=== PATIENT | male | born 1975 | race Two or more races ===

== ENCOUNTER 2023-09-07 17:21 | Emergency (ER) | payer OTHER ==
[~2023-09-07] VITALS: Ht 175.3 cm; Wt 95.3 kg
[~2023-09-07 17:21] MED LIST: LISINOPRIL20 MG
[2023-09-07] MEDS ORDERED: NORVASC5 MG PO (17:55)
[2023-09-07 18:50] LABS: HEMATOCRIT 42.6 % (39.0-48.0); HEMOGLOBIN 14.9 g/dL (13-16.00); MEAN CELL VOLUME 85.5 fL (80.0-100.00); MEAN CORPUSCULAR HEMOGLOBIN 29.9 pg (27.00-32.0); PLATELET COUNT 274 K/uL (150-450); RED BLOOD COUNT 4.98 M/uL (4.00-6.00); RED CELL DISTRIBUTION WIDTH 14.5 % (11.5-14.5)
[2023-09-07 19:13] LABS: CALCIUM 9.1 mg/dL (8.5-10.1); CREATININE SERUM 1.13 mg/dL (0.70-1.30); GFR 68.69; POTASSIUM 4.26 mEq/L (3.5-5.1)
[2023-09-07 19:37] LABS: PH,URINE 5.5 (5.0-8.0); URINE APPEARANCE Clear; URINE BILIRRUBIN Negative (NEGATIVE); URINE BLOOD Negative; URINE COLOR Yellow; URINE GLUCOSE Negative (NEGATIVE); URINE LEUKOCYTE Negative; URINE NITRATE Negative; URINE PROTEIN Negative (NEGATIVE); URINE UROBILINOGEN 0.2 E.U./dl
[2023-09-07 19:38] LABS: URINE BACTERIA 21.3 uL (0.0-1933); URINE EPITHELIAL CELLS 1.8 uL (0.0-38.8); URINE RBC 2.7 uL (0.0-20.8); URINE WBC 21.7 uL (0.0-23.2)
[2023-09-08 01:05] LABS: HEMATOCRIT 43.9 % (39.0-48.0); HEMOGLOBIN 14.6 g/dL (13-16.00); MEAN CELL VOLUME 86.9 fL (80.0-100.00); MEAN CORPUSCULAR HEMOGLOBIN 28.9 pg (27.00-32.0); MEAN CORPUSCULAR HGB CONC 33.3 g/dl (32.0-36.0); PLATELET COUNT 265 K/uL (150-450); RED BLOOD COUNT 5.05 M/uL (4.00-6.00); RED CELL DISTRIBUTION WIDTH 14.2 % (11.5-14.5)
[2023-09-08 01:13] LABS: INR 1.03; PARTIAL THROMBOPLASTIN TIME 27.1 SECONDS (22.0-34.0); PROTHROMBIN TIME 10.8 SECONDS (9.0-11.5)
[2023-09-08] MEDS ORDERED: METRONIDAZOLE500 MG PO (04:18)
[2023-09-08] MEDS ORDERED: CIPRO500 MG PO (04:18)
[2023-09-08] MEDS ORDERED: INTESTINEX680 M1 PO ×2 (04:19)
== END 2023-09-08 04:32 ==
LOC: ER 17:21
PROVIDERS: Emergency Medicine; General Practice
DX: K62.5 Hemorrhage of anus and rectum (principal); Z91.041 Radiographic dye allergy status; Z88.6 Allergy status to analgesic agent; I10 Essential (primary) hypertension

== ENCOUNTER 2025-02-25 12:31 | Emergency (ER) | payer OTHER ==
[~2025-02-25] VITALS: Ht 175.3 cm; Wt 99.8 kg
[~2025-02-25 12:31] MED LIST changes: +CIPRO500 MG PO; +INTESTINEX680 M1 PO; +METRONIDAZOLE500 MG PO; +NORVASC5 MG PO
[2025-02-25] MEDS ORDERED: ORPHENADRINE CITRATE 30 MG/ML AMPUL IM ONE (14:45)
[2025-02-25] MEDS ORDERED: KETOROLAC TROMETHAMINE 60 MG VIAL IM ONE (14:45)
[2025-02-25] MEDS ORDERED: NORFLEX100MG PO (15:16)
== END 2025-02-25 16:11 | disposition home or self-care (01) ==
LOC: ER 12:32
DX: M62.830 Muscle spasm of back (principal); M54.9 Dorsalgia, unspecified; I10 Essential (primary) hypertension; Z88.5 Allergy status to narcotic agent; Z88.9 Allergy status to unspecified drugs, medicaments and biological substances; Z91.041 Radiographic dye allergy status